=== PATIENT | male | born 1980 | race Two or more races ===

== ENCOUNTER 2016-09-03 14:14 | Day surgery (SDC) | payer OTHER ==
[2016-09-03] MEDS ORDERED: SODIUM CHLORIDE 0.9% 2,000 ML IV ONE (14:26)
[2016-09-03] MEDS ORDERED: ONDANSETRON 4 MG/2 ML VIAL IVP STA (14:26)
[2016-09-03] MEDS ORDERED: ONDANSETRON 4 MG/2 ML VIAL ONE (14:27)
--- NOTE | 2016-09-03 14:28 | ED Physician Documentation ---
PD HPI ABD PAIN - Stated complaint Stated Complaint: VOMITING - Chief complaint Chief Complaint: Abd Pain - History obtained from History obtained from: Patient - History of Present Illness Timing - onset: Other (Previously healthy 36-year-old gentleman with no abdominal surgeries save a pilonidal cyst 2 days of lower abdominal pain which is somewhat migratory associated with vomiting and diarrhea. He's had a few blood specks in the vomiting and diarrhea has been green. He traveled recently from [place] where he lives, he is working. No foreign travel recently. No obvious fevers.) Review of Systems Ten Systems: 10 systems reviewed and negative Constitutional: reports: Fatigue. denies: Fever, Chills Cardiac: denies: Chest pain / pressure, Palpitations Respiratory: denies: Dyspnea, Cough GI: reports: Abdominal Pain, Nausea, Vomiting, Diarrhea. denies: Constipation, Bloody / black stool : denies: Dysuria, Frequency PD PAST MEDICAL HISTORY - Past Medical History Past Medical History: No - Present Medications Home Medications: Ambulatory Orders Medication Instructions Recorded Confirmed No Known Home Medications [No 09/03/16 09/03/16 Known Home Medications] - Allergies Allergies/Adverse Reactions: Allergies Allergy/AdvReac Type Severity Reaction Status Date / Time No Known Drug Allergies Allergy Verified 09/03/16 14:34 - Social History Does the pt smoke?: No Does the pt drink ETOH?: No Does the pt have substance abuse?: No - Family History Family history: reports: Non contributory PD ED PE NORMAL - Vitals Vital signs reviewed: Yes - General General: Alert and oriented X 3, No acute distress - HEENT HEENT: PERRL, EOMI, Ears normal, Moist mucous membranes - Neck Neck: Supple, no meningeal sign, No bony TTP - Cardiac Cardiac: RRR, No murmur - Respiratory Respiratory: No respiratory distress, Clear bilaterally - Abdomen Abdomen: Normal bowel sounds, Soft, Other (mild diffuse ttp) - Back Back: No CVA TTP, No spinal TTP - Derm Derm: Normal color, Warm and dry - Extremities Extremities: No deformity, No tenderness to palpate, No edema, No calf tenderness / cord - Neuro Neuro: Alert and oriented X 3, Normal speech - Psych Psych: Normal mood, Normal affect Results - Vitals Vitals: Vital Signs - 24 hr 09/03/16 14:17 Temperature 37.4 C Heart Rate 114 H Respiratory 20 Rate Blood Pressure 116/83 H O2 Saturation 97 Oxygen O2 Source Room air - Labs Labs: Laboratory Tests 09/03/16 09/03/16 14:36 14:36 WBC 12.6 H RBC 6.20 H Hgb 15.8 Hct 47.2 MCV 76.2 L MCH 25.4 L MCHC 33.4 RDW 15.2 H Plt Count 398 MPV 7.7 Neut # 10.4 H Lymph # 1.4 L [place] # 0.5 Eos # 0.2 Baso # 0.1 Absolute Nucleated RBC 0.01 Nucleated RBCs 0.1 Sodium 136 Potassium 4.2 Chloride 99 L Carbon Dioxide 25 Anion Gap 12.0 BUN 17 Creatinine 1.1 Estimated GFR (MDRD) 77 L Glucose 131 H Calcium 9.9 Total Bilirubin 0.6 AST 16 ALT 28 Alkaline Phosphatase 77 Total Protein 9.4 H Albumin 5.3 Globulin 4.1 Albumin/Globulin Ratio 1.3 Lipase 11 L PD MEDICAL DECISION MAKING - ED course ED course: 36-year-old gentleman with lower abdominal pain and vomiting more than diarrhea with leukocytosis and a CT that is indeterminate but possibly suggestive of appendicitis. On reexamination at 330 p.m. he was tank tender in the low abdomen. It was ascertained that his last oral intake was at 4am, case discussed with the on-call surgeon, Dr. Olivares 337 p.m. and he will be in to see the patient, we agreed on Zosyn in the interim. Departure - Departure Disposition: ED Transfer to [facility] Clinical Impression: Appendicitis Qualifiers: Appendicitis type: acute appendicitis Acute appendicitis type: with localized peritonitis Qualified Code(s): K35.3 - Acute appendicitis with localized peritonitis Condition: Stable
[2016-09-03 14:46] LABS: BASOPHILS # (AUTO) 0.1 10^3/uL (0.0-0.1); BASOPHILS % (AUTO) 0.4 %; EOSINOPHILS # (AUTO) 0.2 10^3/uL (0.0-0.7); EOSINOPHILS % (AUTO) 1.3 %; HCT - HEMATOCRIT 47.2 % (42.0-52.0); HGB - HEMOGLOBIN 15.8 g/dL (14.0-18.0); LYMPHOCYTES # (AUTO) 1.4 10^3/uL (1.5-3.5); LYMPHOCYTES % (AUTO) 11.4 %; MEAN CORPUSCULAR HEMOGLOBIN 25.4 pg (27.0-31.0); MEAN CORPUSCULAR HGB CONC 33.4 g/dL (32.0-36.0); MEAN CORPUSCULAR VOLUME 76.2 fL (80.0-94.0); MEAN PLATELET VOLUME 7.7 fL (7.4-11.4); MONOCYTES # (AUTO) 0.5 10^3/uL (0.0-1.0); MONOCYTES % (AUTO) 4.3 %; NEUTROPHILS # (AUTO) 10.4 10^3/uL (1.5-6.6); NEUTROPHILS % (AUTO) 82.6 %; NUCLEATED RED BLOOD CELLS AUTO 0.1 /100WBC; RED CELL DISTRIBUTION WIDTH 15.2 % (12.0-15.0); UNCORRECTED WHITE BLOOD COUNT 12.6 x10^3/uL; WHITE BLOOD COUNT 12.6 x10^3/uL (4.8-10.8)
[2016-09-03 15:00] LABS: ALBUMIN/GLOBULIN RATIO 1.3 (1.0-2.2); BILIRUBIN,TOTAL 0.6 mg/dL (0.2-1.0); CALCIUM 9.9 mg/dL (8.5-10.3); CREATININE 1.1 mg/dL (0.6-1.2); POTASSIUM 4.2 mmol/L (3.5-5.0); TOTAL PROTEIN 9.4 g/dL (6.7-8.2)
[2016-09-03] MEDS ORDERED: IOPAMIDOL-300 100 ML VIAL IVP ONE (15:00)
--- NOTE | 2016-09-03 15:26 | CT Preliminary Report ---
Exam: CT Abdomen/Pelvis W/ IMPRESSION: 1. Appendix contains multiple appendicoliths and is minimally dilated measuring up to 7 mm in diamete r without significant surrounding fat stranding. Tip is not well-visualized. Clinical correlation is recommended as early appendicitis could have this appearance. 2. Liver appears hypoattenuating suggesting fatty infiltration. [facility] SITE ID: [id number]
--- NOTE | 2016-09-03 15:29 | CT Report ---
EXAM: CT ABDOMEN AND PELVIS EXAM DATE: 09/03/2016 03:07 PM. CLINICAL HISTORY: low abd pain, N/V/D. COMPARISONS: None. TECHNIQUE: Routine helical CT imaging was performed through the abdomen and pelvis. IV contrast: 100 cc Isovue-300. Enteric contrast: No. Reconstructions: Coronal and sagittal. In accordance with CT protocol optimization, one or more of the following dose reduction techniques w ere utilized for this exam: automated exposure control, adjustment of mA and/or KV based on patient s ize, or use of iterative reconstructive technique. FINDINGS: Lung Bases: Unremarkable. Liver: Appears hypoattenuating suggesting fatty infiltration. No masses. Gallbladder/Bile Ducts: Unremarkable. Spleen: Normal. Pancreas: Normal. Adrenal Glands: Normal. Kidneys: Normal. No masses or hydronephrosis. Peritoneal Cavity/Bowel: The appendix appears to contain multiple appendicoliths. The appendix is min imally dilated measuring up to 7 mm in diameter without significant surrounding fat stranding. The ti p is not well-visualized on this exam. Remaining portions of the bowel appear within normal limits. N o free fluid, free air or adenopathy. No masses. Pelvic Organs: Normal. The bladder and visualized pelvic organs are within normal limits. Vasculature: No aneurysms or other significant abnormality. Bones: No significant abnormality. Other: None. IMPRESSION: 1. Appendix contains multiple appendicoliths and is minimally dilated measuring up to 7 mm in diamete r without significant surrounding fat stranding. Tip is not well-visualized. Clinical correlation is recommended as early appendicitis could have this appearance. 2. Liver appears hypoattenuating suggesting fatty infiltration. [facility] Referring Provider Line: [phone] SITE ID: [id number]
[2016-09-03] MEDS ORDERED: PIPERACILLIN/TAZOBACTAM 4.5 GM in SODIUM CHLORIDE 0.9% MINIBAG 100 ML IV STA (15:36)
[2016-09-03 15:51] VITALS: BP 111/70
[2016-09-03] MEDS ORDERED: LACTATED RINGERS 1,000 ML IV ONE ×2 (16:48→17:39)
[2016-09-03] MEDS ORDERED: BUPIVACAINE 0.5% PF 30 ML VIAL SUBQ ONE ×2 (17:21→17:45)
[2016-09-03] MEDS ORDERED: MIDAZOLAM 2 MG/2 ML VIAL IVP ONE (18:00)
[2016-09-03] MEDS ORDERED: LIDOCAINE-MPF 2% 5 ML VIAL IM ONE (18:00)
[2016-09-03] MEDS ORDERED: ESMOLOL 100 MG/10 ML VIAL IVP ONE (18:00)
[2016-09-03] MEDS ORDERED: NEOSTIGMINE 1 MG/1 ML 10 ML MDV IVP ONE (18:00)
[2016-09-03] MEDS ORDERED: DEXAMETHASONE 4 MG/ML VIAL IVP ONE (18:00)
[2016-09-03] MEDS ORDERED: ONDANSETRON 4 MG/2 ML VIAL IVP ONE (18:00)
[2016-09-03] MEDS ORDERED: KETOROLAC 30 MG/ML VIAL IVP ONE (18:00)
[2016-09-03] MEDS ORDERED: ePHEDrine 50 MG/ML AMP IVP ONE (18:00)
[2016-09-03] MEDS ORDERED: fentaNYL 100 MCG/2 ML VIAL IVP ONE (18:00)
[2016-09-03] MEDS ORDERED: PROPOFOL 200 MG/20 ML VIAL IVP ONE (18:00)
[2016-09-03] MEDS ORDERED: GLYCOPYRROLATE 1 MG/5 ML VIAL IVP ONE (18:00)
[2016-09-03] MEDS ORDERED: HYDROcod/ACET 5/325 Prepack 6 PO STA (18:42)
[2016-09-03] MEDS ORDERED: HYDROcod/ACET 5/325 Prepack 6 PO ONE (18:46)
[2016-09-03] MEDS ORDERED: HYDROcod/ACETAM 10 MG/325 MG TABLET PO PRN (19:22)
[2016-09-03] MEDS ORDERED: HYDROmorphone 1 MG/ML SYRINGE IVP PRN (19:22)
[2016-09-03] MEDS ORDERED: ONDANSETRON 4 MG/2 ML VIAL IVP PRN (19:22)
--- NOTE | 2016-09-03 21:40 | PREOP HISTORY & PHYSICAL ---
PREOPERATIVE HISTORY AND PHYSICAL/CONSULTATION DATE OF ADMISSION/SURGERY: 09/03/2016 DATE OF CONSULTATION: 09/03/2016 REQUESTING PROVIDER: I was called in consultation by Dr. Kodi An to evaluate this very pleas ant 36-year-old male for likely appendicitis. HISTORY OF PRESENT ILLNESS: The patient normally lives in [place] and flew into our local area on Sun. On Sunday, he had some soup, did not feel particularly well and had some soup subsequent to t hat. He has had persistent abdominal pain and then on Sunday he states with the ingestion of more s oup, "I spewed it everywhere." He is not eaten any questionable food or drank any questionable water. He does travel quite a bit. He has had a little bit of diarrhea with this. ALLERGIES: NONE. MEDICATIONS: None. PAST MEDICAL AND SURGICAL HISTORY: Pilonidal cystectomy. SOCIAL HISTORY Tobacco, none. Alcohol, none. Recreational drug use, none. FAMILY HISTORY: Noncontributory for this disease process. REVIEW OF SYSTEMS CONSTITUTIONAL: He denies any fatigue, weight loss, or fever and chills. He states he just simply fee ls terrible. HEENT: He denies improvement or worsening of his vision or hearing, he does not have any difficulty s peaking or swallowing. NECK: He denies pain. CARDIAC: He denies chest pain or pressure. RESPIRATORY: He denies shortness breath or productive cough. ABDOMEN: He has had generalized abdominal pain, which the pain is slightly migratory. GENITOURINARY: He denies dysuria. SKIN: He denies rash. NEUROLOGIC: He denies focal weakness. PSYCHIATRIC: He denies depression or anxiety. PHYSICAL EXAMINATION GENERAL: This is a 36-year-old male who was evaluated in room 8 at [facility]'s em ergency department. He is morbidly obese. He is clearly uncomfortable. He is alert and oriented to pe rson, place and time. He asks and answers questions appropriately. His mood and affect do appear appr opriate. VITAL SIGNS: Please refer to nurses' notes, but notably he has a little low-grade temperature and tac hycardia. HEENT: Normocephalic, atraumatic. Sclerae are noninjected, nonicteric. His mucous membranes are pink and dry. NECK: Supple without mass or bruit. HEART: Regular rate and rhythm without rub, murmur or gallop currently. LUNGS: Clear to auscultation bilaterally anterolaterally. ABDOMEN: Tender in the left side as opposed to the right. He is not as tender at McBurney's point. He does have an easily reducible umbilical hernia. EXTREMITIES: Nontender. GAIT: Not evaluated. LABORATORY VALUES: Abnormalities on his chemistry include a chloride of 99, estimated GFR 77, glucose 131, total protein of 9.4 and a lipase of 11. Abnormalities on his hematology include a white blood cell count of 12.6, RBCs of 6.2, MCV of 76.2, MCH 25.4, RDW 15.2 with 10.4 neutrophils and 1.[address] scan shows a dilated appendix with 3 appendicoliths clearly seen. This may be located in the ret rocecal position. There is no evidence of other intraabdominal process that would explain his pain. ASSESSMENT: Likely early acute appendicitis. PLAN: Laparoscopic appendectomy, possible open appendectomy as well as umbilical herniorrhaphy. The i ndication, procedure, alternatives, and possible complications including but not limited to infection , bleeding with all of its risks, and were fully explained to the patient and all questions wer e answered. Verbal and written consent was obtained. The patient in preparation for his surgery will be maintained n.p.o. He will be given preoperative antibiotics for prophylaxis against surgical infec tion. Additionally, he will be given TEDs and Venodynes for prophylaxis against deep venous thrombosi s. I asked the patient to let us know if there is any way we can make his stay here at [facility] more comfortable, to please let us know, and he stated that he would. JOB #: [id number] EXT JOB #:[id number]
--- NOTE | 2016-09-03 22:54 | OPERATIVE REPORT ---
DATE OF SURGERY: 09/03/2016 00:00:00 TIME: 1750 hours. PREOPERATIVE DIAGNOSIS: Acute appendicitis, umbilical hernia. POSTOPERATIVE DIAGNOSIS: Acute appendicitis, umbilical hernia. PROCEDURE: Laparoscopic appendectomy and umbilical herniorrhaphy. SURGEON: Will Olivares MD ANESTHESIA: Javon Mcclure (general endotracheal) with 30 mL of 0.5% Marcaine. COMPLICATIONS: None. ESTIMATED BLOOD LOSS: Less than 5 mL. FLUIDS: 1200 mL. URINE OUTPUT: 400 mL. SPECIMEN REMOVED: Appendix. DETAILS OF PROCEDURE: After informed consent was obtained detailing the risks of infection, bleeding with all of its risks including transfusion, and , the patient was brought to the operative suite and placed supine on the operating room table. Javon Mcclure provided anesthesia care for the entirety of the case and induced general endotracheal anesthesia without incident. The patient received preoperative antibiotics for prophylaxis against surgical infection. The patient had TEDs and Venodynes placed for prophylaxis against deep venous thrombosis. The patient was prepped and draped in the usual standard manner. At this point, a time-in was done that confirmed the patient's identity via 3 different identifiers, name, medical record number, date of , as well as the procedure to be performed and confirmed that we had the personnel and equipment required to perform the procedure. Time was allotted to ask any questions and express any concerns that anyone in the room might have. With the agreement of everyone in the room, the operation was allowed to proceed. An umbilical incision was made at the base of the umbilicus, and dissection was carried out down to the hernia sac using Bovie electrocautery. The hernia sac was excised using Bovie electrocautery. The peritoneum was grasped and incised, gaining entry into the abdomen without incident. Through this opening was placed a 12 mm blunt-tipped balloon-tipped cannula, and the balloon was inflated to keep this in place. The abdomen was then insufflated to a steady state pressure of 50 mmHg with carbon dioxide. Two additional ports, both 5 mm ports, were placed; one directly superior at the midline, and one directly inferior at the midline. Both of these were placed under direct vision without incident. The appendix was then found in a slightly retrocecal position and noted to be somewhat inflamed with some periappendiceal fluid. This was grasped, and the mesentery of the appendix was taken sequentially using LigaSure. Once the base of the appendix had been dissected free from its mesentery, an endoscopic stapler with a vascular load was used to transect the base of the appendix. An additional vascular load was required to complete the transection. Please note photographs were taken of the appendix prior to excision and after it was excised. There was no significant bleeding in the right lower quadrant. The rest the abdomen did appear to be normal. All port sites were then injected using 0.5% Marcaine at the peritoneal, fascial, and skin layer. The appendix was placed into an Endopouch that had been placed through the 12 mm port. At this point in time, all ports were removed, and the fascia at the umbilicus was approximated using 0 Vicryl suture in 2 interrupted [id number] sutures. By securing the umbilical fascia, I repaired the umbilical hernia. The skin was closed at all sites using 4-0 Monocryl in a subcuticular fashion. The skin was cleaned of its prep. Mastisol and Steri-Strips were applied. The patient was subsequently extubated and taken to the recovery room in good and stable condition, having tolerated the procedure well. JOB #: [id number] EXT JOB #:[id number]
== END 2016-09-03 15:50 | disposition home or self-care (01) ==
LOC: ED 14:14 → SDS 15:49
PROVIDERS: ATTEND Surgery
PROC: 0WQF0ZZ Repair Abdominal Wall, Open Approach (ICD-10-PCS; 2016-09-03)
PROC: 0DTJ4ZZ Resection of Appendix, Percutaneous Endoscopic Approach (ICD-10-PCS; principal; 2016-09-03 16:30)
DX: K35.80 Unspecified acute appendicitis (principal); K42.9 Umbilical hernia without obstruction or gangrene; E66.9 Obesity, unspecified; Z68.41 Body mass index [BMI] 40.0-44.9, adult; G47.30 Sleep apnea, unspecified
CPT/HCPCS: 36415; 44970; 49585; 74177; 80053; 83690; 85025; 99283; J7120; Q9967; 88304; 96374; 96375; 99284